=== PATIENT | male | born 1940 | race Caucasian/White ===

== ENCOUNTER 2016-07-12 22:21 | Emergency (ER) | payer MEDICARE | END 2016-07-13 02:15 | disposition home or self-care (01) | LOC: FER 22:21 | DX: L03.115 Cellulitis of right lower limb (principal); E11.9 Type 2 diabetes mellitus without complications; I10 Essential (primary) hypertension; E78.5 Hyperlipidemia, unspecified; Z79.84 Long term (current) use of oral hypoglycemic drugs; Z79.01 Long term (current) use of anticoagulants; Z79.899 Other long term (current) drug therapy; Z95.0 Presence of cardiac pacemaker | CPT/HCPCS: 99283 ==

== ENCOUNTER 2021-08-01 19:56 | Emergency (ER) | payer MEDICARE ==
[2021-08-01 21:56] LABS: BASOPHIL 0.3 % (0-2); EOSINOPHIL 3.8 % (0-7); HCT 39.8 % (42.0-52.0); HGB 12.6 g/dl (13.2-18.0); LYMPHOCYTE 10.8 % (15-48); MCH 29.5 pg (25.0-31.0); MCHC 31.7 g/dL (32.0-36.0); MCV 93.2 fL (78.0-100.0); MONOCYTE 8.6 % (0-12); MPV 10.3 fL (6.0-9.5); NRBC 0; PLT 258 K/uL (150-400); RBC 4.27 M/uL (4.70-6.00); RDW 14.1 % (11.5-14.0); WBC 14.8 K/uL (4.0-10.5)
[2021-08-01 22:16] LABS: ALBUMIN 3.6 g/dL (3.4-5.0); BILIRUBIN - TOTAL 0.8 mg/dL (0.2-1.0); BUN/CREAT RATIO (CALC) 14.4 RATIO; CREATININE 1.81 mg/dL (0.67-1.17); POTASSIUM 5.3 mmol/L (3.5-5.1); TOTAL PROTEIN 7.6 g/dL (6.4-8.2)
[2021-08-01 22:31] LABS: CORONAVIRUS 2019 SARS-COV-2 NEGATIVE (NEGATIVE); INFLUENZA A NAA NEGATIVE (NEGATIVE)
[2021-08-01 22:43] LABS: LACTIC ACID 1.7 mmol/L (0.4-1.9)
[2021-08-01 23:40] LABS: BILIRUBIN NEGATIVE (NEGATIVE); BLOOD NEGATIVE Ery/uL (NEGATIVE); CLARITY CLEAR (CLEAR); COLOR YELLOW (YELLOW); GLUCOSE (U) NORMAL (NORMAL); LEUKOCYTES NEGATIVE Leu/uL (NEGATIVE); NITRITE NEGATIVE (NEGATIVE); PROTEIN 1+ mg/dL (NEGATIVE); SPECIFIC GRAVITY 1.025 (1.001-1.030); UROBILINOGEN 0.2 mg/dL (0.2-1.0)
[2021-08-01 23:49] LABS: AMORPHOUS URATES CRYSTALS TRACE; BACTERIA 2+; GRANULAR CASTS MODERATE; MUCOUS TRACE; URINARY RBC RARE
[2021-08-02 01:53] LABS: BUN/CREAT RATIO (CALC) 15.3 RATIO; CREATININE 1.7 mg/dL (0.67-1.17); POTASSIUM 5.4 mmol/L (3.5-5.1)
== END 2021-08-02 08:17 | disposition other institution (70) ==
LOC: FER 19:56
PROVIDERS: Emergency Medicine
DX: J18.9 Pneumonia, unspecified organism (principal); I10 Essential (primary) hypertension; E11.9 Type 2 diabetes mellitus without complications; Z20.822 Contact with and (suspected) exposure to COVID-19; Z79.899 Other long term (current) drug therapy; Z28.310 Unvaccinated for COVID-19
CPT/HCPCS: 36415; 71045; 80048; 80053; 81001; 83605; 83880; 84145; 84484; 85025; 87040; 93005; 94640; 94664; 94760; J0610; J2543; J2930; J7030; U0002

== ENCOUNTER 2021-08-18 05:31 | Emergency (ER) | payer MEDICARE ==
[2021-08-18 06:38] LABS: BASOPHIL 0.3 % (0-2); HCT 40.4 % (42.0-52.0); HGB 13.2 g/dl (13.2-18.0); LYMPHOCYTE 11.4 % (15-48); MCH 29.4 pg (25.0-31.0); MCHC 32.7 g/dL (32.0-36.0); MONOCYTE 8.3 % (0-12); MPV 10.2 fL (6.0-9.5); NEUTROPHIL 77.4 % (41-80); NRBC 0; PLT 334 K/uL (150-400); RBC 4.49 M/uL (4.70-6.00); RDW 14.1 % (11.5-14.0); WBC 19.8 K/uL (4.0-10.5)
[2021-08-18 06:46] LABS: INR 2.06 (0.9-1.2); PROTHROMBIN TIME 22.5 SECONDS (11.9-13.9)
[2021-08-18 06:47] LABS: PTT 44.8 SECONDS (24.9-34.6)
[2021-08-18 06:56] LABS: BILIRUBIN NEGATIVE (NEGATIVE); BLOOD NEGATIVE Ery/uL (NEGATIVE); CLARITY CLEAR (CLEAR); COLOR YELLOW (YELLOW); GLUCOSE (U) NORMAL (NORMAL); LEUKOCYTES NEGATIVE Leu/uL (NEGATIVE); NITRITE NEGATIVE (NEGATIVE); PROTEIN NEGATIVE (NEGATIVE); UROBILINOGEN 0.2 mg/dL (0.2-1.0)
[2021-08-18 06:58] LABS: ALBUMIN 3.1 g/dL (3.4-5.0); ALKALINE PHOSHATASE 101 U/L (46-116); ALT 20 U/L (16-63); AST 21 U/L (15-37); BILIRUBIN - TOTAL 1.2 mg/dL (0.2-1.0); BUN 34 mg/dL (7-18); CHLORIDE 97 mmol/L (98-107); CO2 (BICARBONATE) 27 mmol/L (21-32); CREATININE 1.62 mg/dL (0.67-1.17); GLOBULIN (CALCULATION) 3.6 g/dL; GLUCOSE 155 mg/dL (74-106); MAGNESIUM 2.6 mg/dL (1.8-2.4); POTASSIUM 4.6 mmol/L (3.5-5.1); TOTAL PROTEIN 6.7 g/dL (6.4-8.2)
[2021-08-18 08:44] LABS: CORONAVIRUS 2019 SARS-COV-2 NEGATIVE (NEGATIVE); INFLUENZA A NAA NEGATIVE (NEGATIVE)
[2021-08-18] MEDS ORDERED: FLOMAX0.4 MG PO (09:06)
[2021-08-18] MEDS ORDERED: MIRALAX 238GM238 GM PO (09:06)
== END 2021-08-18 09:30 | disposition home or self-care (01) ==
LOC: FER 05:31
PROVIDERS: Internal Medicine
DX: K59.00 Constipation, unspecified (principal); R10.11 Right upper quadrant pain; R10.31 Right lower quadrant pain; R91.8 Other nonspecific abnormal finding of lung field; R33.9 Retention of urine, unspecified; E11.9 Type 2 diabetes mellitus without complications; F03.90 Unspecified dementia, unspecified severity, without behavioral disturbance, psychotic disturbance, mood disturbance, and anxiety; Z20.822 Contact with and (suspected) exposure to COVID-19; Z28.310 Unvaccinated for COVID-19
CPT/HCPCS: 36415; 71045; 71250; 80053; 81003; 83605; 83690; 83735; 83880; 84145; 84484; 85025; 85610; 85730; 87040; 93005; 96365; 96375; J1940; J2405; J2543; J3010; U0002

== ENCOUNTER 2021-08-20 09:19 | Emergency (ER) | payer MEDICARE ==
[~2021-08-20 09:19] MED LIST: FLOMAX0.4 MG PO; MIRALAX 238GM238 GM PO
[2021-08-20] MEDS ORDERED: LIDOCAINE-HC 3-07 GM TOP (12:00)
== END 2021-08-20 12:18 | disposition home or self-care (01) ==
LOC: FER 09:19
DX: K59.00 Constipation, unspecified (principal); E11.9 Type 2 diabetes mellitus without complications; I10 Essential (primary) hypertension; Z79.84 Long term (current) use of oral hypoglycemic drugs

== ENCOUNTER 2021-10-21 15:54 | Inpatient (IN) | payer MEDICARE ==
[~2021-10-21] VITALS: Ht 180.3 cm; Wt 98.1 kg
[~2021-10-21 15:54] MED LIST changes: +LIDOCAINE-HC 3-07 GM TOP
[2021-10-21 16:23] LABS: BASOPHIL 0.2 % (0-2); EOSINOPHIL 0.3 % (0-7); HCT 35.8 % (42.0-52.0); HGB 11.3 g/dl (13.2-18.0); LYMPHOCYTE 5.6 % (15-48); MCH 29.1 pg (25.0-31.0); MCHC 31.6 g/dL (32.0-36.0); MCV 92.3 fL (78.0-100.0); MONOCYTE 7.5 % (0-12); MPV 10.4 fL (6.0-9.5); NRBC 0; PLT 291 K/uL (150-400); RBC 3.88 M/uL (4.70-6.00); RDW 16.4 % (11.5-14.0); WBC 13.5 K/uL (4.0-10.5)
[2021-10-21 16:36] LABS: INR 1.98 (0.9-1.2); PROTHROMBIN TIME 21.8 SECONDS (11.9-13.9); PTT 47.4 SECONDS (24.9-34.6)
[2021-10-21 16:43] LABS: ALBUMIN 2.4 g/dL (3.4-5.0); BILIRUBIN - TOTAL 0.5 mg/dL (0.2-1.0); BUN/CREAT RATIO (CALC) 14.2 RATIO; CREATININE 1.62 mg/dL (0.67-1.17); GLOBULIN (CALCULATION) 3.9 g/dL; POTASSIUM 4.2 mmol/L (3.5-5.1); TOTAL PROTEIN 6.3 g/dL (6.4-8.2)
[2021-10-21 16:49] LABS: LACTIC ACID 5.3 mmol/L (0.4-1.9)
[2021-10-21 17:19] LABS: CORONAVIRUS 2019 SARS-COV-2 NEGATIVE (NEGATIVE); INFLUENZA A NAA NEGATIVE (NEGATIVE)
[2021-10-21 17:22] LABS: BILIRUBIN NEGATIVE (NEGATIVE); BLOOD 2+ Ery/uL (NEGATIVE); CLARITY CLEAR (CLEAR); COLOR YELLOW (YELLOW); GLUCOSE (U) NORMAL (NORMAL); LEUKOCYTES NEGATIVE Leu/uL (NEGATIVE); NITRITE NEGATIVE (NEGATIVE); PROTEIN NEGATIVE (NEGATIVE)
[2021-10-21 17:28] LABS: BACTERIA 3+
[2021-10-21 17:29] LABS: AMORPHOUS URATES CRYSTALS MODERATE
[2021-10-21] MEDS ORDERED: ALLOPURINOL 10100 MG PO (18:41)
[2021-10-21] MEDS ORDERED: WARFARIN SODIUM1 MG PO (18:42)
[2021-10-21] MEDS ORDERED: FAMOTIDINE20 MG PO (18:42)
[2021-10-21] MEDS ORDERED: GABAPENTIN 100100 MG PO (18:44)
[2021-10-21] MEDS ORDERED: GABAPENTIN400 MG PO (18:44)
[2021-10-21] MEDS ORDERED: ATENOLOL50 MG PO (18:52)
[2021-10-21] MEDS ORDERED: JANUVIA 100MG100 MG PO (18:57)
[2021-10-22 05:55] LABS: BASOPHIL 0.3 % (0-2); EOSINOPHIL 0.3 % (0-7); HCT 34.2 % (42.0-52.0); HGB 10.5 g/dl (13.2-18.0); LYMPHOCYTE 11.6 % (15-48); MCH 28.8 pg (25.0-31.0); MCHC 30.7 g/dL (32.0-36.0); MCV 93.7 fL (78.0-100.0); MONOCYTE 8.8 % (0-12); MPV 10.6 fL (6.0-9.5); NEUTROPHIL 78.4 % (41-80); NRBC 0; PLT 320 K/uL (150-400); RBC 3.65 M/uL (4.70-6.00); RDW 16.7 % (11.5-14.0)
[2021-10-22 05:59] LABS: INR 2.88 (0.9-1.2); PROTHROMBIN TIME 29.1 SECONDS (11.9-13.9)
[2021-10-22 06:11] LABS: BUN/CREAT RATIO (CALC) 14.5 RATIO; CREATININE 1.52 mg/dL (0.67-1.17); MAGNESIUM 1.8 mg/dL (1.8-2.4); POTASSIUM 4.2 mmol/L (3.5-5.1)
--- NOTE | 2021-10-22 19:24 | NUR ---
0800 LEVOPHED DRIP DCD BLOOD PRESSURE 126/47
--- NOTE | 2021-10-23 05:42 | NUR ---
10/22 2143- PT BP 84/33 (45) ON MONITOR. MANUAL BP 86/38. PT STARTED ON LEVOPHED GTT. 10/23 0345- PT HAD 100ML OF URINE OUT OF WERNER CATH. BLADDER SCAN SHOWED 20 ML. ABDOMEN SOFT. PER ASSISTANT PRODUCT MANAGER, PT GIVEN 500ML BOLUS OF LR. BLADDER SCAN PRINT PLACED IN CHART.
[2021-10-23 05:44] LABS: BASOPHIL 0.1 % (0-2); EOSINOPHIL 0 % (0-7); HCT 33.7 % (42.0-52.0); HGB 10.2 g/dl (13.2-18.0); LYMPHOCYTE 10.9 % (15-48); MCH 29.4 pg (25.0-31.0); MCHC 30.3 g/dL (32.0-36.0); MCV 97.1 fL (78.0-100.0); MONOCYTE 7.5 % (0-12); MPV 10.6 fL (6.0-9.5); NRBC 0; PLT 353 K/uL (150-400); RBC 3.47 M/uL (4.70-6.00); WBC 16.9 K/uL (4.0-10.5)
[2021-10-23 05:57] LABS: PROTHROMBIN TIME 59.1 SECONDS (11.9-13.9)
[2021-10-23 06:00] LABS: INR 7.23 (0.9-1.2)
[2021-10-23 06:31] LABS: ALKALINE PHOSHATASE 152 U/L (46-116); ALT 960 U/L (16-63); AST >2000 U/L (15-37); BILIRUBIN - TOTAL 1.1 mg/dL (0.2-1.0); BUN 38 mg/dL (7-18); BUN/CREAT RATIO (CALC) 17.1 RATIO; CHLORIDE 99 mmol/L (98-107); CO2 (BICARBONATE) 19 mmol/L (21-32); CREATININE 2.22 mg/dL (0.67-1.17); GLOBULIN (CALCULATION) 3.6 g/dL; GLUCOSE 136 mg/dL (74-106); POTASSIUM 5.1 mmol/L (3.5-5.1); TOTAL PROTEIN 5.6 g/dL (6.4-8.2)
[2021-10-23 06:33] LABS: C-REACTIVE PROTEIN > 18.00 mg/dL (<=0.90)
[2021-10-23 14:07] LABS: BUN/CREAT RATIO (CALC) 17.8 RATIO; CREATININE 2.25 mg/dL (0.67-1.17); POTASSIUM 5.2 mmol/L (3.5-5.1)
--- NOTE | 2021-10-23 15:48 | NUR ---
10/23/21 Mr. Mcnamara lives with his daughter, Yeny Whalen. He has been bedbound for the last 3 - 4 months. [facility] is current and were notified of admission. He has: hospital bed, o2, portable, rw, rollator, wc, 3in1, and s. chair. - Emotional support is being provided. Pt's code status has been changed to DNR.
[2021-10-24 06:17] LABS: BASOPHIL 0.1 % (0-2); EOSINOPHIL 0 % (0-7); HGB 9.3 g/dl (13.2-18.0); LYMPHOCYTE 6.1 % (15-48); MCH 28.9 pg (25.0-31.0); MCV 96.3 fL (78.0-100.0); MPV 11.2 fL (6.0-9.5); NEUTROPHIL 87.4 % (41-80); NRBC 0.4; PLT 292 K/uL (150-400); RBC 3.22 M/uL (4.70-6.00); RDW 16.6 % (11.5-14.0); WBC 17.4 K/uL (4.0-10.5)
[2021-10-24 06:28] LABS: PROTHROMBIN TIME 54.1 SECONDS (11.9-13.9); PTT 52.4 SECONDS (24.9-34.6)
[2021-10-24 06:38] LABS: INR 6.45 (0.9-1.2)
[2021-10-24 06:58] LABS: B. PERTUSSIS DNA NOT DETECTED (NOT DETECT); CHLAMYDOPHILA PNEUMON DNA PCR NN (NOT DETECT); CORONAVIRUS 229E NOT DETECTED (NOT DETECT); CORONAVIRUS HKU1 NOT DETECTED (NOT DETECT); CORONAVIRUS NL63 NOT DETECTED (NOT DETECT); CORONAVIRUS OC43 NOT DETECTED (NOT DETECT); HUMAN METAPNEUMO NOT DETECTED (NOT DETECT); INFLUENZA A NOT DETECTED (NOT DETECT); INFLUENZA A 2009 H1N1 NOT DETECTED (NOT DETECT); INFLUENZA A H1 NOT DETECTED (NOT DETECT); INFLUENZA A H3 NOT DETECTED (NOT DETECT); INFLUENZA B NOT DETECTED (NOT DETECT); PARAINFLUENZA 1 NOT DETECTED (NOT DETECT); PARAINFLUENZA 2 NOT DETECTED (NOT DETECT); PARAINFLUENZA 3 NOT DETETED (NOT DETECT); PARAINFLUENZA 4 NOT DETECTED (NOT DETECT); RESPIRATORY SYNCYTIAL VIRUS NOT DETECTED (NOT DETECT)
[2021-10-24 06:59] LABS: CORONAVIRUS 2019 PCR NOT DETECTED (NOT DETECTD); MYCOPLASMA PNEUMONIAE NOT DETECTED (NOT DETECT)
[2021-10-24 07:29] LABS: ALBUMIN 1.6 g/dL (3.4-5.0); ALKALINE PHOSHATASE 186 U/L (46-116); ALT 2333 U/L (16-63); BILIRUBIN - TOTAL 0.9 mg/dL (0.2-1.0); BUN 48 mg/dL (7-18); BUN/CREAT RATIO (CALC) 17.3 RATIO; CHLORIDE 95 mmol/L (98-107); CO2 (BICARBONATE) 27 mmol/L (21-32); CREATININE 2.78 mg/dL (0.67-1.17); GLOBULIN (CALCULATION) 3.6 g/dL; GLUCOSE 267 mg/dL (74-106); MAGNESIUM 1.7 mg/dL (1.8-2.4); PHOSPHORUS 7.2 mg/dL (2.6-4.7); POTASSIUM 4.7 mmol/L (3.5-5.1); TOTAL PROTEIN 5.2 g/dL (6.4-8.2)
[2021-10-24 07:38] LABS: AST >2000 U/L (15-37)
[2021-10-25 05:59] LABS: BASOPHIL 0.2 % (0-2); EOSINOPHIL 0 % (0-7); HCT 28.7 % (42.0-52.0); HGB 8.7 g/dl (13.2-18.0); LYMPHOCYTE 6.2 % (15-48); MCH 28.9 pg (25.0-31.0); MCHC 30.3 g/dL (32.0-36.0); MCV 95.3 fL (78.0-100.0); MPV 11.4 fL (6.0-9.5); NEUTROPHIL 86.3 % (41-80); NRBC 0.9; PLT 178 K/uL (150-400); RBC 3.01 M/uL (4.70-6.00); RDW 16.9 % (11.5-14.0); WBC 18.4 K/uL (4.0-10.5)
[2021-10-25 06:18] LABS: INR 3.2 (0.9-1.2); PROTHROMBIN TIME 31.6 SECONDS (11.9-13.9)
[2021-10-25 06:28] LABS: ALBUMIN 2.9 g/dL (3.4-5.0); BILIRUBIN - TOTAL 1.4 mg/dL (0.2-1.0); BUN/CREAT RATIO (CALC) 16.9 RATIO; CREATININE 3.44 mg/dL (0.67-1.17); POTASSIUM 4.6 mmol/L (3.5-5.1); TOTAL PROTEIN 5.9 g/dL (6.4-8.2)
== END 2021-10-25 17:45 | disposition expired | DRG 871 ==
LOC: FER 15:54 → FICU 17:57
PROVIDERS: Allergy & Immunology Allergy; Emergency Medicine; Internal Medicine Cardiovascular Disease; ADMIT Internal Medicine
PROC: 3E033XZ Introduction of Vasopressor into Peripheral Vein, Percutaneous Approach (ICD-10-PCS; principal; 2021-10-21)
PROC: 06HY33Z Insertion of Infusion Device into Lower Vein, Percutaneous Approach (ICD-10-PCS; 2021-10-21)
PROC: 3E03329 Introduction of Other Anti-infective into Peripheral Vein, Percutaneous Approach (ICD-10-PCS; 2021-10-21)
PROC: 0T9B70Z Drainage of Bladder with Drainage Device, Via Natural or Artificial Opening (ICD-10-PCS; 2021-10-21)
PROC: 5A09357 Assistance with Respiratory Ventilation, Less than 24 Consecutive Hours, Continuous Positive Airway Pressure (ICD-10-PCS; 2021-10-23)
PROC: B24BZZZ Ultrasonography of Heart with Aorta (ICD-10-PCS; 2021-10-23)
PROC: 5A09457 Assistance with Respiratory Ventilation, 24-96 Consecutive Hours, Continuous Positive Airway Pressure (ICD-10-PCS; 2021-10-24)
DX: A41.9 Sepsis, unspecified organism (principal); G93.41 Metabolic encephalopathy; J18.9 Pneumonia, unspecified organism; R65.21 Severe sepsis with septic shock; N17.0 Acute kidney failure with tubular necrosis; J96.21 Acute and chronic respiratory failure with hypoxia; J96.22 Acute and chronic respiratory failure with hypercapnia; K72.00 Acute and subacute hepatic failure without coma; I21.A1 Myocardial infarction type 2; I13.0 Hypertensive heart and chronic kidney disease with heart failure and stage 1 through stage 4 chronic kidney disease, or unspecified chronic kidney disease; I50.32 Chronic diastolic (congestive) heart failure; F05 Delirium due to known physiological condition; Z66 Do not resuscitate; Z51.5 Encounter for palliative care; Z20.822 Contact with and (suspected) exposure to COVID-19; J84.10 Pulmonary fibrosis, unspecified; U09.9 Post COVID-19 condition, unspecified; Z28.310 Unvaccinated for COVID-19; Y95 Nosocomial condition; J43.9 Emphysema, unspecified; E87.5 Hyperkalemia; I25.10 Atherosclerotic heart disease of native coronary artery without angina pectoris; I48.91 Unspecified atrial fibrillation; E78.5 Hyperlipidemia, unspecified; M10.9 Gout, unspecified; K21.9 Gastro-esophageal reflux disease without esophagitis; N18.30 Chronic kidney disease, stage 3 unspecified; E11.22 Type 2 diabetes mellitus with diabetic chronic kidney disease; I49.5 Sick sinus syndrome; I36.1 Nonrheumatic tricuspid (valve) insufficiency; Z79.01 Long term (current) use of anticoagulants; Z79.899 Other long term (current) drug therapy; Z90.49 Acquired absence of other specified parts of digestive tract; Z95.0 Presence of cardiac pacemaker; Z79.84 Long term (current) use of oral hypoglycemic drugs; Z87.891 Personal history of nicotine dependence
CPT/HCPCS: 36415; 36600; 71045; 71250; 80048; 80053; 80076; 80202; 81001; 82330; 82803; 82962; 83605; 83735; 83880; 84100; 84145; 84484; 85025; 85610; 85730; 86140; 87040; 87088; 93005; 94640; 94660; 94668; 94760; 94762; 96361; 96374; 96375; C9113; J1100; J1630; J1940; J1956; J2060; J2543; J2930; J3370; J3430; J7030; J7050; J7070; J7120; P9047; U0002